=== PATIENT | female | born 1990 | race African-American/Black ===

== ENCOUNTER 2019-10-13 03:47 | Emergency (ER) | payer MEDICAID ==
[~2019-10-13] VITALS: Ht 162.6 cm; Wt 50.0 kg
[2019-10-13 04:14] VITALS: BP 128/90
[2019-10-13] MEDS ORDERED: ONDANSETRON HCL 4MG/2ML INJ IV ONE (04:30)
[2019-10-13] MEDS ORDERED: SODIUM CHLORIDE 0.9% 1,000 ML IV ONE (04:30)
[2019-10-13 04:56] LABS: BASOPHILS % 1.4 % (0.0-2.0); EOSINOPHILS % 0.3 % (0.0-5.0); HEMATOCRIT. 44.3 % (36.0-48.0); HEMOGLOBIN. 14.7 g/dL (12.0-16.0); MEAN CORPUSCULAR HEMOGLOBIN 28.9 pg (28.0-32.0); MEAN CORPUSCULAR VOLUME 87.4 fL (81.0-99.0); MEAN PLATELET VOLUME 8.3 fl (7.4-10.4); MONOCYTES % 4.9 % (2.0-8.0); NEUTROPHILS % 41.4 % (40.0-76.0); PLATELET 283 x1000/uL (130-400); RED BLOOD CELL COUNT 5.07 mill/uL (4.2-5.4); RED CELL DISTRIBUTION WIDTH 15.3 % (11.6-14.6)
[2019-10-13 05:04] LABS: CHLORIDE 111 mEq/L (98-107)
[2019-10-13 05:07] LABS: HCG SCREEN NEGATIVE
== END 2019-10-13 07:26 | disposition home or self-care (01) ==
LOC: EDBD 03:47 → ER 04:21
DX: R41.82 Altered mental status, unspecified (principal); F19.10 Other psychoactive substance abuse, uncomplicated
CPT/HCPCS: 36415; 80053; 80320; 82962; 84484; 84703; 85025; 93005; 96360; 96361; 99284; J2405; J7030; G0480